=== PATIENT | female | born 1970 ===

== ENCOUNTER → 2022-08-28 16:24 | Outpatient (CLI) | payer OTHER, BC, SELFPAY ==
--- NOTE | ~2022-08-28 | XR_ITS ---
XR shoulder RT min 2V DATE: 08/28/2022 17:07 INDICATION: Right shoulder injury, pain TECHNIQUE: 4 views COMPARISON: None FINDINGS: There is osteopenia. There is mild degenerative change at the right acromioclavicular joint. No fracture or dislocation, periosteal reaction or bone destruction or abnormal right shoulder soft t issue calcification IMPRESSION: Osteopenia Mild degenerative change at right acromioclavicular joint Reviewed, dictated and finalized at location B. [facility]
== END ==
PROVIDERS: PCP Family Medicine; Visit Provider Nurse Practitioner Family
DX: S49.90XA Unspecified injury of shoulder and upper arm, unspecified arm, initial encounter (principal); X58.XXXA Exposure to other specified factors, initial encounter; M85.811 Other specified disorders of bone density and structure, right shoulder; M19.011 Primary osteoarthritis, right shoulder
CPT/HCPCS: 73030

== ENCOUNTER → 2022-10-20 11:09 | Outpatient (CLI) | payer BC, SELFPAY ==
--- NOTE | ~2022-10-20 | DEXA_ITS ---
Bone Density Report Name: ISABELLE CLAY Age: 52 Sex: Female Ethnicity: White Date of : 1970 Indication: postmenopausal; screening for osteoporosis; Referring Provider: Florencia Byers Study: Bone densitometry was performed. Exam Date: October 20, 2022 Accession number: [id number] Bone Density: Region BMD T-score Z-score Classification AP Spine (L1-L4) 1.034 -0.1 0.9 Normal Femoral Neck (Left) 0.790 -0.5 0.5 Normal Total Hip (Left) 0.938 0.0 0.6 Normal Femoral Neck (Right) 0.768 -0.7 0.3 Normal Total Hip (Right) 0.884 -0.5 0.2 Normal Total Hip Mean 0.911 -0.3 0.4 Normal World Health Organization criteria for BMD impression classify patients as: Normal (T-score at or above -1.0), Osteopenia (T-score between -1.0 and -2.5), or Osteoporosis (T-score at or below -2.5). 10-year Fracture Risk: FRAX not reported because: All T-scores for Spine Total, Hip Total, Femoral Neck at or above -1.0 Clinical Information Provided by Patient: Patient maximum height was 67.7 Menopause Age: 51 Drinks caffeinated beverages Onset of menses at age 10 Number of children 2 Impression: The patient has normal bone mass. Discussion: BONE DENSITY IS ABOVE THE MINIMUM DESIRABLE LEVEL AT ALL SKELETAL SITES TESTED. This patient?s bone mineral density is above the minimum desirable level (T-score -1.0 or better) at all sites measured. The patient should follow a healthful lifestyle (good nutrition with adequate calcium and vitamin D, and appropriate weight-bearing exercise). Follow-Up: Consider repeating this study in 5 years or sooner if there is some new clinical indication. Reported by: LEDA on 10/20/2022 11:30:00 AM. Reviewed, dictated and finalized at location A. [facility]
== END ==
PROVIDERS: PCP Family Medicine; Visit Provider Nurse Practitioner Family
DX: M85.88 Other specified disorders of bone density and structure, other site (principal)
CPT/HCPCS: 77080